=== PATIENT | male | born 1935 | race Caucasian/White ===

== ENCOUNTER 2018-12-29 10:35 | Observation (INO) | payer OTHER ==
[~2018-12-29] VITALS: Ht 167.6 cm; Wt 71.2 kg
[2018-12-29] MEDS ORDERED: ATOR40TA75 PO (10:55)
[2018-12-29] MEDS ORDERED: FLOM0.4C39 PO (10:55)
[2018-12-29] MEDS ORDERED: ASPI81TA85 PO (10:55)
[2018-12-29] MEDS ORDERED: RANI1TAB38 PO (10:55)
[2018-12-29] MEDS ORDERED: ACET1TAB55 PO (10:55)
[2018-12-29 11:40] LABS: BASO % 0.5 % (0.0-1.0); EOS # 0.2 10^3/uL (0.0-0.50); EOS % 3.3 % (0.0-3.0); HEMATOCRIT 36.6 % (42.0-52.0); HEMOGLOBIN 11.9 g/dl (13.5-17.5); LYMPH # 1.1 10^3/uL (1.5-4.5); LYMPH % 18.7 % (24.0-44.0); MEAN CORPUSCULAR HGB CONC 32.5 g/dl (32.0-36.5); MEAN CORPUSCULAR VOLUME 101.4 fl (80.0-96.0); MONO # 0.6 10^3/uL (0.0-0.8); MONO % 10.5 % (0.0-5.0); NEUTROPHILS # 3.9 10^3/uL (1.8-7.7); NEUTROPHILS % 66.7 % (36.0-66.0); PLATELET COUNT, AUTOMATED 165 10^3/uL (150-450); RED BLOOD COUNT 3.61 10^6/uL (4.30-6.10); WHITE BLOOD COUNT 5.8 10^3/uL (4.0-10.0)
--- NOTE | 2018-12-29 11:48 | REP ---
Portable chest, 11:31 a.m., single AP view with the patient upright: There are no comparisons. There are small bibasilar infiltrates. Lung baldwin otherwise clear. Cardiac size is normal. The maurice, mediastinum, and bony thorax are unremarkable. Impression: Small bibasilar infiltrates. Electronically Signed by Leodan Ann MD 12/29/2018 11:39 A
[2018-12-29 12:26] LABS: BLOOD UREA NITROGEN 25 MG/DL (7-18); CALCIUM LEVEL 9.1 MG/DL (8.8-10.2); CARBON DIOXIDE LEVEL 27 MEQ/L (21-32); CHLORIDE LEVEL 110 MEQ/L (98-107); CK-MB VALUE MASS 2.2 NG/ML (<3.6); CPK CREATINE PHOSPHOKINASE 184 U/L (39-308); CREATININE FOR GFR 1.28 MG/DL (0.70-1.30); GLOMERULAR FILTRATION RATE 57.1 (>35); GLUCOSE, FASTING 92 MG/DL (70-100); MAGNESIUM LEVEL 2.2 MG/DL (1.8-2.4); POTASSIUM SERUM 5.8 MEQ/L (3.5-5.1); SODIUM LEVEL 140 MEQ/L (136-145); THYROID STIMULATING HORMONE 0.824 uIU/ML (0.358-3.740); TROPONIN I < 0.02 NG/ML (< 0.10)
--- NOTE | 2018-12-29 14:39 | REP ---
REASON: Syncopal episode. PRIORS: None. TECHNIQUE: 4.5 mm contiguous transaxial sections were obtained from the skull base to the cerebral convexities with thin cuts through the posterior fossa without the administration of intravenous contrast. FINDINGS: The ventricles and sulci are consistent with the patient's age. There are no extra-axial fluid collections. There is no mass effect. The deep cerebral white matter is consistent with the patient's age. The orbital and petrous structures , cerebellopontine angles, and posterior fossa are unremarkable. The sella turcica, cavernous, and paracavernous structures are essentially unremarkable. The visualized portions of the paranasal sinuses and mastoid air cells are clear. Images of the skull base show no gross abnormality. IMPRESSION: Essentially unremarkable CT examination of the brain. There are age-related changes with mild cerebral atrophy and deep white matter ischemic disease. Electronically Signed by Americo Trinh DO 12/29/2018 03:22 P
[2018-12-29 17:23] LABS: CK-MB VALUE MASS 2.9 NG/ML (<3.6); CPK CREATINE PHOSPHOKINASE 119 U/L (39-308); MB/CK RELATIVE INDEX 2.44 (< OR =4); TROPONIN I < 0.02 NG/ML (< 0.10)
[2018-12-29] MEDS ORDERED: PHARMACY COMMENT (18:29)
[2018-12-29] MEDS ORDERED: ACETAMINOPHEN TAB 650MG DOSE (2X325MG) PO PRN (19:00)
--- NOTE | 2018-12-29 20:00 | HPEPDOC ---
General Date of Admission Dec 29, 2018 at 18:51 Date of Service: Dec 29, 2018 Chief Complaint The patient is a 83-year-old male admitted with a reason for visit of Syncope. History of Present Illness 83-year-old male prisoner with past medical history of dyslipidemia, BPH, GERD, bladder cancer status post BCG, RCC s/p Left sided Nephrectomy presents to the ER after a syncopal episode. The patient states that he was watching television after eating breakfast, and syncopized. The patient states that he fell forward and hit the right side of his sikhism. He also scraped his knees bilaterally. He denies any prodromal symptoms of chest pain, palpitations, lightheadedness, abdominal pain, or any nausea/vomiting/diarrhea. The patient states that he has had several episodes like this over the last 50 years. He denies any history of coronary artery disease. States that he last saw his spool maker in June, and had a negative stress test. He states that he has a known history of a right bundle branch block for over 20 years. He denied any other acute complaints of fevers, chills, cough, shortness of breath. Home Medications Scheduled Aspirin (Aspir 81) 81 Mg Tablet.dr, 81 MG PO DAILY, (Reported) Atorvastatin Calcium (Atorvastatin Calcium) 40 Mg Tablet, 40 MG PO DAILY, (Reported) Ranitidine Hcl (Ranitidine HCl) 150 Mg Tablet, 1 TAB PO DAILY, (Reported) THIS HAS NOT BEEN FILLED IN SEVERAL MONTHS ACCORDING TO NURSE AT [facility] Tamsulosin HCl (Flomax) 0.4 Mg Capsule, 0.4 MG PO DAILY, (Reported) Scheduled PRN Acetaminophen (Acetaminophen) 325 Mg Tablet, 650 MG PO Q4H PRN for PAIN, (Reported) Miscellaneous Medications [Pharmacy Comment] , (Reported) MEDICATIONS VERIFIED WITH NURSE AT [facility] Allergies Coded Allergies: shellfish derived (Verified Allergy, Unknown, anaphylaxis, 12/29/18) Past Medical History Medical History As noted in HPI. 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 Review of Systems Other systems 10 point review of systems negative unless otherwise specified in HPI. Physical Examination General Exam: Positive: Alert, Cooperative, No Acute Distress ENT Exam: Positive: Mucous membr. moist/pink, Other ENT (1 cm laceration noted on the right side of the forehead near temporal area.) Neck Exam: Negative: JVD Chest Exam: Positive: Clear to auscultation, Normal air movement Heart Exam: Positive: Rate Normal, Normal S1, Normal S2 Abdomen Exam: Positive: Soft; Negative: Tenderness Extremity Exam: Negative: Tenderness, Swelling Neuro Exam: Positive: Normal Speech, Strength at 5/5 X4 ext, Normal Tone, Sensation Intact Psych Exam: Positive: Mental status NL, Mood NL, Oriented x 3 Vital Signs Vital Signs Date Time Temp Pulse Resp B/P (MAP) Pulse Ox O2 Delivery O2 Flow Rate FiO2 12/29/18 19:27 65 18 132/82 (99) 98 Room Air 12/29/18 11:01 96.6 Laboratory Data Labs 24H Laboratory Tests 2 12/29/18 11:25: Bedside Glucose (Misc Panel) 89 12/29/18 11:27: Immature Granulocyte % (Auto) 0.3, White Blood Count 5.8, Red Blood Count 3.61L, Hemoglobin 11.9L, Hematocrit 36.6L, Mean Corpuscular Volume 101.4H, Mean Corpuscular Hemoglobin 33.0, Mean Corpuscular Hemoglobin Concent 32.5, Red Cell Distribution Width 12.7, Platelet Count 165, Neutrophils (%) (Auto) 66.7H, Lymphocytes (%) (Auto) 18.7L, Monocytes (%) (Auto) 10.5H, Eosinophils (%) (Auto) 3.3H, Basophils (%) (Auto) 0.5, Neutrophils # (Auto) 3.9, Lymphocytes # (Auto) 1.1L, Monocytes # (Auto) 0.6, Eosinophils # (Auto) 0.2, Basophils # (Auto) 0.0, Nucleated Red Blood Cells % (auto) 0.0, Anion Gap 3L, Glomerular Filtration Rate 57.1, Blood Urea Nitrogen 25H, Creatinine 1.28, Sodium Level 140, Potassium Lev el 5.8H, Chloride Level 110H, Carbon Dioxide Level 27, Calcium Level 9.1, Total Creatine Kinase 184, Magnesium Level 2.2, Creatine Kinase MB 2.2, Creatine Kinase MB Relative Index 1.20, Troponin I < 0.02, Thyroid Stimulating Hormone (TSH) 0.824 12/29/18 16:28: Potassium Level 4.0#, Total Creatine Kinase 119, Creatine Kinase MB 2.9, Creatine Kinase MB Relative Index 2.44, Troponin I < 0.02 CBC/BMP Laboratory Tests 12/29/18 11:27 Red Blood Count 3.61 L, Mean Corpuscular Volume 101.4 H, Mean Corpuscular Hemoglobin 33.0, Mean Corpuscular Hemoglobin Concent 32.5, Red Cell Distribution Width 12.7, Neutrophils (%) (Auto) 66.7 H, Lymphocytes (%) (Auto) 18.7 L, Monocytes (%) (Auto) 10.5 H, Eosinophils (%) (Auto) 3.3 H, Basophils (%) (Auto) 0.5, Neutrophils # (Auto) 3.9, Lymphocytes # (Auto) 1.1 L, Monocytes # (Auto) 0.6, Eosinophils # (Auto) 0.2, Basophils # (Auto) 0.0, Calcium Level 9.1, Total Creatine Kinase 184 12/29/18 16:28 Total Creatine Kinase 119 Plan / VTE VTE Prophylaxis Ordered?: Yes Plan Plan Syncopal Episode of Unclear Etiology CT Head with no acute findings EKG with RBBB noted, no prior for comparison We will monitor on Telemetry Orthostatics ordered 2D ECHO, Carotid U/S Order to obtain records from his Rigging Up Man placed We will cont to monitor Hx of Bladder Ca s/p BCG, RCC s/p Left Sided Nephrectomy F/U as outpatient Dyslipidemia Cont Statin BPH Continue Flomax GERD Continue Pepcid DVT Prophylaxis Lovenox subcutaneous CORONA GRAVES MD Dec 29, 2018 20:00
[2018-12-29] MEDS ORDERED: ENOXAPARIN 40 MG/0.4 ML SYRINGE (J1650) SC SCH (21:00)
--- NOTE | 2018-12-29 21:08 | REPVR ---
EXAM: US Duplex Bilateral Extracranial Arteries EXAM DATE/TIME: 12/29/2018 8:24 PM CLINICAL HISTORY: 83 years old, male; Syncope and collapse; Additional info: Syncopal episode TECHNIQUE: Imaging protocol: Real-time Duplex ultrasound scan of the Bilateral carotid and vertebral arteries combining samayoa scale, color Doppler and spectral waveform analysis. COMPARISON: No relevant prior studies available. FINDINGS: Right common carotid artery: The right proximal common carotid artery demonstrates normal waveforms with velocity of 70 cm/s and distal velocity is 48 cm/s. Right internal carotid artery: The right proximal internal carotid artery demonstrates mild plaque with normal waveforms and proximal velocity of 50 cm/s, mid velocity 59 cm/s and distal velocity of 46 cm/s. Right ICA/CCA ratio: The right ICA/CCA ratio is 0.84. Right external carotid artery: The right external carotid artery demonstrates normal waveforms with velocity of 95 cm/s. Right vertebral artery: The right vertebral artery is not seen. Left common carotid artery: The left common carotid artery demonstrates minimal plaque with normal waveforms and proximal velocity of 77 cm/s, mid velocity of 55 cm/s and distal velocity of 63 cm/s. Left internal carotid artery: The left proximal internal carotid artery demonstrates minimal plaque with normal velocity of 42 cm/s, mid velocity is 64 cm/s and distal velocity is 62 cm/s. Left ICA/CCA ratio: The left ICA/CCA ratio is 0.83. Left external carotid artery: The left external carotid artery demonstrates normal waveforms and normal velocity of 79 cm/s. Left vertebral artery: The left vertebral artery demonstrates antegrade flow with velocity of 29 cm/s. IMPRESSION: 1. Minimal to mild plaque bilaterally. 2. Otherwise negative carotid Doppler evaluation without evidence of hemodynamically significant stenosis. 0% stenosis. COMMENT: Carotid Stenosis Reference using SRU criteria: Mild: less than 50% stenosis. ICA PSV is less than 125 cm/second and plaque or intimal thickening is visible. Moderate: 50-69% stenosis. ICA PSV is 125 to 230 cm/second and plaque is visible. Severe: 70-94% stenosis. ICA PSV is more than 230 cm/second and visible plaque and lumen narrowing are seen. Near occlusion: 95-99% stenosis. ICA PSV is variable and significant plaque and luminal narrowing are seen. Occluded: 100% stenosis. No flow identified. Electronically signed by: Amari Johnson On 12/29/2018 21:08:08 PM
[2018-12-29 23:59] VITALS: BP_SYST 145; BP_SYST 159; BP_SYST 160; BP_DIAS 80; BP_DIAS 81; BP_DIAS 85
--- NOTE | 2018-12-30 00:19 | ECGEPIP ---
[facility] - ED Test Date: 2018-12-29 Pat Name: NANI CANCHOLA Department: Room: - Gender: Male Shoes Hand Sewer: TERRIE : 1935 Requested By: Brent Forte Order Number: [id number] Reading MD: Jaylon Hansen Measurements Intervals Lerona Rate: 71 P: 43 NV: 161 QRS: QRSD: 148 T: 12 QT: 393 QTc: 428 Interpretive Statements SINUS RHYTHM WITH Sinus Arrthymia RIGHT BUNDLE BRANCH BLOCK Comparison tracing not on file Electronically Signed on 12-30-2018 0:19:37 EDT by Jaylon Hansen
--- NOTE | 2018-12-30 00:26 | ECGEPIP ---
[facility] - ED Test Date: 2018-12-29 Pat Name: NANI CANCHOLA Department: Room: - Gender: Male Cast Associate: nasrin : 1935 Requested By: Brent Forte Order Number: [id number] Reading MD: Jaylon Hansen Measurements Intervals Levasy Rate: 59 P: 30 OR: 166 QRS: QRSD: 146 T: 2 QT: 440 QTc: 438 Interpretive Statements SINUS BRADYCARDIA WITH OCCASIONAL SUPRAVENTRICULAR PREMATURE COMPLEXES RIGHT BUNDLE BRANCH BLOCK Similar to tracing done at 10:51 the same day with lower rate Electronically Signed on 12-30-2018 0:26:16 EDT by Jaylon Hansen
[2018-12-30] MEDS ORDERED: SLF 3 ML SYR IV PRN (01:15)
[2018-12-30 04:00] VITALS: BP 106/65
[2018-12-30 06:07] LABS: HEMATOCRIT 35.5 % (42.0-52.0); HEMOGLOBIN 11.9 g/dl (13.5-17.5); MEAN CORPUSCULAR HEMOGLOBIN 32.5 pg (27.0-33.0); MEAN CORPUSCULAR HGB CONC 33.5 g/dl (32.0-36.5); PLATELET COUNT, AUTOMATED 164 10^3/uL (150-450); RED BLOOD COUNT 3.66 10^6/uL (4.30-6.10)
[2018-12-30] MEDS: SLF 3 ML SYR IV SCH ×2 (06:26→13:31)
[2018-12-30 06:38] LABS: ALT/SGPT 16 U/L (12-78); BILIRUBIN,TOTAL 0.6 MG/DL (0.2-1.0); BLOOD UREA NITROGEN 21 MG/DL (7-18); CALCIUM LEVEL 9.1 MG/DL (8.8-10.2); CARBON DIOXIDE LEVEL 26 MEQ/L (21-32); CHLORIDE LEVEL 114 MEQ/L (98-107); CREATININE FOR GFR 1.21 MG/DL (0.70-1.30); GLOMERULAR FILTRATION RATE > 60.0 (>35); GLUCOSE, FASTING 82 MG/DL (70-100); POTASSIUM SERUM 4.1 MEQ/L (3.5-5.1); SODIUM LEVEL 145 MEQ/L (136-145); TOTAL PROTEIN 6.1 GM/DL (6.4-8.2)
[2018-12-30 07:50] VITALS: BP_SYST 116; BP_SYST 120; BP_SYST 133; BP_DIAS 60; BP_DIAS 66; BP_DIAS 72
[2018-12-30] MEDS ORDERED: ASPIRIN 81 MG ENTERIC TAB PO SCH (09:00)
[2018-12-30] MEDS ORDERED: FAMOTIDINE 20 MG TAB PO SCH (09:00)
[2018-12-30] MEDS ORDERED: ATORVASTATIN 20 MG TAB PO SCH (09:00)
[2018-12-30] MEDS ORDERED: TAMSULOSIN 0.4 MG CAP PO SCH (09:00)
--- NOTE | 2018-12-30 14:14 | DS.PDOC ---
Discharge Summary General Date of Admission Dec 29, 2018 at 18:51 Date of Discharge 12/30/18 Discharge Summary PROCEDURES PERFORMED DURING STAY: None. ADMITTING/DISCHARGE DIAGNOSES: Syncopal episode History of bladder cancer status post BCG History of renal cell carcinoma status post left-sided nephrectomy Dyslipidemia BPH GERD COMPLICATIONS/CHIEF COMPLAINT: Syncope. HISTORY OF PRESENT ILLNESS: . 83-year-old male prisoner with past medical history of dyslipidemia, BPH, GERD, bladder cancer status post BCG, RCC s/p Left sided Nephrectomy presents to the ER after a syncopal episode. The patient states that he was watching television after eating breakfast, and syncopized. The patient states that he fell forward and hit the right side of his spiritism. He also scraped his knees bilaterally. He denies any prodromal symptoms of chest pain, palpitations, lightheadedness, abdominal pain, or any nausea/vomiting/diarrhea. The patient states that he has had several episodes like this over the last 50 years. He denies any history of coronary artery disease. States that he last saw his accessioner in June, and had a negative stress test. He states that he has a known history of a right bundle branch block for over 20 years. He denied any other acute complaints of fevers, chills, cough, shortness of breath. During hospitalization, the patient had a carotid ultrasound which did not reveal any significant stenosis. In addition, the patient had a 2-D echocardiogram, the results of which are still pending. The patient did not have any significant events on telemetry to explain his syncopal episode. The patient states that he has had one similar episode every 10 years for the last 50 years. He states that he has had a workup for this on multiple occasions, and nothing was found. Perhaps this may be vasovagal in etiology. The patient would benefit from a tilt table test as an outpatient. Also, I did dianetic counselor the patient on possibly getting a event recorder if this would to recur. At this time, the patient is eager to be discharged. I have counseled him to follow-up with his primary care physician to follow-up with the results of his 2-D echocardiogram from here, as well as reconcile these records to his records from [facility]. The patient has been advised to return to the ER for any acute emergencies. DISCHARGE MEDICATIONS: Please see below. ALLERGIES: Please see below. PHYSICAL EXAMINATION ON DISCHARGE: VITAL SIGNS: Please see below. General Exam: Positive: Alert, Cooperative, No Acute Distress ENT Exam: Positive: Mucous membr. moist/pink, Other ENT (1 cm laceration noted on the right side of the forehead near temporal area.) Neck Exam: Negative: JVD Chest Exam: Positive: Clear to auscultation, Normal air movement Heart Exam: Positive: Rate Normal, Normal S1, Normal S2 Abdomen Exam: Positive: Soft; Negative: Tenderness Extremity Exam: Negative: Tenderness, Swelling Neuro Exam: Positive: Normal Speech, Strength at 5/5 X4 ext, Normal Tone, Sen sation Intact Psych Exam: Positive: Mental status NL, Mood NL, Oriented x 3 LABORATORY DATA: Please see below. IMAGING: Portable chest, 11:31 a.m., single AP view with the patient upright: There are no comparisons. There are small bibasilar infiltrates. Lung baldwin otherwise clear. Cardiac size is normal. The maurice, mediastinum, and bony thorax are unremarkable. Impression: Small bibasilar infiltrates. REASON: Syncopal episode. PRIORS: None. TECHNIQUE: 4.5 mm contiguous transaxial sections were obtained from the skull base to the cerebral convexities with thin cuts through the posterior fossa without the administration of intravenous contrast. FINDINGS: The ventricles and sulci are consistent with the patient's age. There are no extra-axial fluid collections. There is no mass effect. The deep cerebral white matter is consistent with the patient's age. The orbital and petrous structures , cerebellopontine angles, and posterior fossa are unremarkable. The sella turcica, cavernous, and paracavernous structures are essentially unremarkable. The visualized portions of the paranasal sinuses and mastoid air cells are clear. Images of the skull base show no gross abnormality. IMPRESSION: Essentially unremarkable CT examination of the brain. There are age-related changes with mild cerebral atrophy and deep white matter ischemic disease. EXAM: US Duplex Bilateral Extracranial Arteries EXAM DATE/TIME: 12/29/2018 8:24 PM CLINICAL HISTORY: 83 years old, male; Syncope and collapse; Additional info: Syncopal episode TECHNIQUE: Imaging protocol: Real-time Duplex ultrasound scan of the Bilateral carotid and vertebral arteries combining samayoa scale, color Doppler and spectral waveform analysis. COMPARISON: No relevant prior studies available. FINDINGS: Right common carotid artery: The right proximal common carotid artery demonstrates normal waveforms with velocity of 70 cm/s and distal velocity is 48 cm/s. Right internal carotid artery: The right proximal internal carotid artery demonstrates mild plaque with normal waveforms and proximal velocity of 50 cm/s, mid velocity 59 cm/s and distal velocity of 46 cm/s. Right ICA/CCA ratio: The right ICA/CCA ratio is 0.84. Right external carotid artery: The right external carotid artery demonstrates normal waveforms with velocity of 95 cm/s. Right vertebral artery: The right vertebral artery is not seen. Left common carotid artery: The left common carotid artery demonstrates minimal plaque with normal waveforms and proximal velocity of 77 cm/s, mid velocity of 55 cm/s and distal velocity of 63 cm/s. Left internal carotid artery: The left proximal internal carotid artery demonstrates minimal plaque with normal velocity of 42 cm/s, mid velocity is 64 cm/s and distal velocity is 62 cm/s. Left ICA/CCA ratio: The left ICA/CCA ratio is 0.83. Left external carotid artery: The left external carotid artery demonstrates normal waveforms and normal velocity of 79 cm/s. Left vertebral artery: The left vertebral artery demonstrates antegrade flow with velocity of 29 cm/s. IMPRESSION: 1. Minimal to mild plaque bilaterally. 2. Otherwise negative carotid Doppler evaluation without evidence of hemodynamically significant stenosis. 0% stenosis. COMMENT: Carotid Stenosis Reference using SRU criteria: Mild: less than 50% stenosis. ICA PSV is less than 125 cm/second and plaque or intimal thickening is visible. Moderate: 50-69% stenosis. ICA PSV is 125 to 230 cm/second and plaque is visible. Severe: 70-94% stenosis. ICA PSV is more than 230 cm/second and visible plaque and lumen narrowing are seen. Near occlusion: 95-99% stenosis. ICA PSV is variable and significant plaque and luminal narrowing are seen. Occluded: 100% stenosis. No flow identified. PROGNOSIS: Fair ACTIVITY: As tolerated. DIET: As tolerated DISCHARGE PLAN: DISPOSITION: . To [facility] facility DISCHARGE INSTRUCTIONS: I have counseled him to follow-up with his primary care physician to follow-up with the results of his 2-D echocardiogram from here, as well as reconcile these records to his records from [facility] office. The patient has been advised to return to the ER for any acute emergencies. DISCHARGE CONDITION: Stable. TIME SPENT ON DISCHARGE: Greater than 30 minutes. Vital Signs/I&Os Vital Signs Date Time Temp Pulse Resp B/P (MAP) Pulse Ox O2 Delivery O2 Flow Rate FiO2 12/30/18 07:52 97.3 18 97 12/30/18 07:50 71 120/60 (80) 84 116/66 (83) 94 133/72 (92) 12/30/18 00:00 Room Air I&O- Last 24 Hours up to 6 AM 12/30/18 05:59 Intake Total 0 ml Output Total 275 ml Balance -275 ml Laboratory Data Labs 24H Laboratory Tests 2 12/29/18 16:28: Potassium Level 4.0#, Total Creatine Kinase 119, Creatine Kinase MB 2.9, Creatine Kinase MB Relative Index 2.44, Troponin I < 0.02 12/30/18 05:37: Potassium Level 4.1, Nucleated Red Blood Cells % (auto) 0.0, Anion Gap 5L, Glomerular Filtration Rate > 60.0, Blood Urea Nitrogen 21H, Creatinine 1.21, Sodium Level 145, Chloride Level 114H, Carbon Dioxide Level 26, Calcium Level 9.1, Aspartate Amino Transf (AST/SGOT) 18, Alanine Aminotransferase (ALT/SGPT) 16, Alkaline Phosphatase 71, Total Bilirubin 0.6, Total Protein 6.1L, Albumin 3.0L, Magnesium Level 2.0, Albumin/Globulin Ratio 0.97L CBC/BMP Laboratory Tests 12/29/18 16:28 Total Creatine Kinase 119 12/30/18 05:37 Red Blood Count 3.66 L, Mean Corpuscular Volume 97.0 H, Mean Corpuscular Hemoglobin 32.5, Mean Corpuscular Hemoglobin Concent 33.5, Red Cell Distribution Width 12.6, Calcium Level 9.1, Aspartate Amino Transf (AST/SGOT) 18, Alanine Aminotransferase (ALT/SGPT) 16, Alkaline Phosphatase 71, Total Bilirubin 0.6, Total Protein 6.1 L, Albumin 3.0 L Discharge Medications Scheduled Aspirin (Aspir 81) 81 Mg Tablet.dr, 81 MG PO DAILY, (Reported) Atorvastatin Calcium (Atorvastatin Calcium) 40 Mg Tablet, 40 MG PO DAILY, (Reported) Ranitidine Hcl (Ranitidine HCl) 150 Mg Tablet, 1 TAB PO DAILY, (Reported) THIS HAS NOT BEEN FILLED IN SEVERAL MONTHS ACCORDING TO NURSE [facility] Tamsulosin HCl (Flomax) 0.4 Mg Capsule, 0.4 MG PO DAILY, (Reported) Scheduled PRN Acetaminophen (Acetaminophen) 325 Mg Tablet, 650 MG PO Q4H PRN for PAIN, (Reported) Miscellaneous Medications [Pharmacy Comment] , (Reported) MEDICATIONS VERIFIED WITH NURSE AT [facility] Allergies Coded Allergies: shellfish derived (Verified Allergy, Unknown, anaphylaxis, 12/29/18) CORONA GRAVES MD Dec 30, 2018 14:14
--- NOTE | 2018-12-30 16:28 | ECGEPIP ---
[facility] Test Date: 2018-12-30 Pat Name: NANI CANCHOLA Department: Room: [place] [address] Gender: Male Customer Care Consultant: DEANGELO : 1935 Requested By: CORONA GRAVES Order Number: [id number] Reading MD: Jaylon Sandoval Measurements Intervals [place] Rate: 65 P: 66 WA: 164 QRS: 11 QRSD: 137 T: 26 QT: 433 QTc: 450 Interpretive Statements SINUS RHYTHM RIGHT BUNDLE BRANCH BLOCK Electronically Signed on 12-30-2018 16:28:40 EDT by Jaylon Sandoval
--- NOTE | 2018-12-30 20:26 | ECHO ---
DATE OF PROCEDURE: 12/30/2018 REFERRING PHYSICIAN: Enmanuel Emery MD INDICATION: Syncope HEIGHT: 168 cm WEIGHT: 71 kg 2D MEASUREMENTS: Left atrium: 3.2 cm Aortic root: 3.4 cm Ventricular septum: 0.9 cm Posterior wall: 0.97 cm Left ventricle diastole: 4.6 cm LVOT: 2.3 cm Inferior vena cava: 1.4 cm DOPPLER MEASUREMENTS: Trace aortic regurgitation. Aortic valve velocity: 125 cm/s LVOT velocity: 66.9 cm/s Mitral E velocity: 58.2 cm/s Mitral A velocity: 83.9 cm/s Mitral deceleration time: 239 ms Very mild tricuspid regurgitation. Pulmonary artery systolic pressure: 12 mmHg MITRAL ANNULAR TISSUE DOPPLER: E prime septal: 5.95 cm/s E prime lateral: 5.65 cm/s DESCRIPTION: Rhythm was sinus with appearance of right bundle branch block. Image quality was fair. This was a 2D, M-mode, color flow Doppler and pulse wave Doppler examination that included mitral annular tissue Doppler. CONCLUSIONS: 1. Normal left ventricle internal dimensions and wall thickness. Normal regional left ventricle (LV) wall motion and wall thickening. Normal LV systolic function. Left ventricular ejection fraction (LVEF) 70% by visual estimate. Grade 1 LV diastolic dysfunction (impaired relaxation filling pattern). 2. 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 Trace aortic regurgitation. No aortic stenosis. 3. Mild mitral annular calcification. No mitral regurgitation. 4. Otherwise normal appearing echocardiogram Doppler findings. No pericardial effusion.
== END 2018-12-30 15:38 | disposition home or self-care (01) ==
LOC: M ED 10:35 → EDBD 10:35 → M ED INP 18:51 → M PCU 23:57
PROVIDERS: ADMIT Internal Medicine; ATTEND Internal Medicine
DX: R55 Syncope and collapse (principal); E78.5 Hyperlipidemia, unspecified; N40.0 Benign prostatic hyperplasia without lower urinary tract symptoms; K21.9 Gastro-esophageal reflux disease without esophagitis; Z85.51 Personal history of malignant neoplasm of bladder; Z85.53 Personal history of malignant neoplasm of renal pelvis; Z79.82 Long term (current) use of aspirin; Z79.899 Other long term (current) drug therapy; Z91.013 Allergy to seafood; Z87.891 Personal history of nicotine dependence